=== PATIENT | male | born 1995 | race African-American/Black ===

== ENCOUNTER 2023-10-26 22:07 | Emergency (ER) | payer BC ==
[~2023-10-26] VITALS: Ht 188 cm; Wt 70.0 kg
[2023-10-26 22:25] VITALS: BP 160/94; PULSE 108; RESP 18; TEMP 98; O2SAT 100
== END 2023-10-26 23:21 | disposition left against medical advice (07) ==
LOC: ER 22:07
DX: F12.129 Cannabis abuse with intoxication, unspecified (principal); R00.0 Tachycardia, unspecified; Z90.49 Acquired absence of other specified parts of digestive tract
CPT/HCPCS: 93005; 99283